=== PATIENT | female | born 1945 | race Asian ===

== ENCOUNTER → 2018-12-16 13:29 | Outpatient (CLI) | payer MEDICARE, OTHER, SELFPAY ==
--- NOTE | 2018-12-16 | DI.NM.S_ITS ---
PROCEDURE: NM GO PERF SPECT REST & STR Rest and exercise myocardial perfusion SPECT with gated imaging and ejection fraction RADIOPHARMACEUTICAL: 24.4 mCi Tc-99m sestamibi IV at rest and 25.4 mCi Tc-99m sestamibi IV at peak exercise. A two day-protocol was performed. INDICATIONS: Chest pain, unspecified TECHNIQUE: Radiopharmaceutical was injected at peak stress test, and also at rest. SPECT images were obtained. SPECT myocardial perfusion images were displayed in short axis, horizontal long axis, and vertical long axis views. Gated images were reviewed using [employer] software. COMPARISON: None. CARDIAC STRESS: A standard Emeka treadmill exercise tolerance test was performed by the patient under the supervision of an attending staff. The patient exercised for 6 minutes and 5 seconds reaching 7.0 METs; functional aerobic impairment (DANNY) is 0%. Hemodynamic data: There is normal blood pressure and heart rate response to exercise stress. Patient achieved 83% of maximum predicted heart rate at peak exercise. Symptoms: Patient denied chest pain during exercise. EKG: No diagnostic EKG changes of ischemia; no ectopy. FINDINGS: Raw data: There is good myocardial labeling by radiotracer. No significant motion artifacts. Ddoc-gn-nndrk ratio is 0.32 (normal is less than 0.38 for sestamibi tracer, and less than 0.50 for thallium tracer). Left ventricle function: Gated images demonstrate normal left ventricle wall thickening. No segmental wall motion abnormality. No transient ischemic dilation; TID is 0.89 (normal less than 1.3). The left ventricle resting end-diastolic volume is 58 mL. Left ventricle stress ejection fraction is 95%; normal values are above 45%. Myocardial perfusion: There is normal distribution of activity in the left and right ventricular myocardium. No fixed or reversible perfusion defects. IMPRESSION: Low risk, normal treadmill nuclear stress test. 1) No perfusion evidence of ischemia or infarction. 2) Normal left ventricular size, wall motion, and systolic function (EF post stress 95%). 3) No ECG evidence of ischemia. 4) No angina during the study. 5) No prior nuclear stress test available for comparison. Dictated by: Letha Rosenberg MD on 12/17/2018 at 12:55 Approved by: Letha Rosenberg MD on 12/17/2018 at 12:57
--- NOTE | 2018-12-16 15:10 | PM.TREADMILL ---
Cardiac Stress Test Report Referral & Results Date Patient Seen: 12/16/18 Requesting provider: Meredith Aguilar Indication: Chest discomfort Rest ECG: Unremarkable Procedure Note: Today following both written and verbal informed consent the patient was exercised according to a standard Emeka protocol patient went for a total of 6 minutes 5 seconds achieving a maximum heart rate of 123 maximum systolic blood pressure of 138. This is approximately 7.0 METS. Exercise was terminated at this point because of patient fatigue and inability to continue. Patient was also given Cardiolite through a previously started Hep-Lock IV by the diagnostic imaging staff approximately 1 minute prior to the cessation of exercise. No ST-T segment changes were identified Normal heart rate and blood pressure response to exercise Functional aerobic impairment rated 0 on the active scale Rare PVC identified Impression: No ECG evidence of ischemia Please see perfusion imaging report as well Average exercise capacity Please note: Actual ECG tracings can be found in the PACS system.
== END ==
PROVIDERS: PCP Physician Assistant Medical; Visit Provider Physician Assistant Medical
DX: R07.89 Other chest pain (principal)
CPT/HCPCS: 78452; 93016; 93017; 93018; A9502